=== PATIENT | female | born 1960 | race Asian ===

== ENCOUNTER 2016-07-29 07:48 | Outpatient (CLI) | payer OTHER | END 2016-07-29 07:49 | disposition home or self-care (01) | DX: R20.9 Unspecified disturbances of skin sensation (principal); G93.9 Disorder of brain, unspecified ==

== ENCOUNTER 2016-09-25 10:53 | Day surgery (SDC) | payer OTHER ==
[~2016-09-25 10:53] MED LIST: ceFAZolin 2 GM/50 ML 50 ML IV ONE
[2016-09-25] MEDS ORDERED: LACTATED RINGERS 1,000 ML IV ONE (11:01)
[2016-09-25] MEDS ORDERED: BUPIVACAINE 0.25% PF 30 ML VIAL SUBQ ONE ×2 (12:42→13:02)
[2016-09-25] MEDS ORDERED: ACETAMINOPHEN 1,000 MG/100 ML VIAL IV ONE (12:44)
[2016-09-25] MEDS ORDERED: ONDANSETRON 4 MG/2 ML VIAL IVP ONE (12:44)
[2016-09-25] MEDS ORDERED: DEXAMETHASONE 4 MG/ML VIAL IVP ONE (12:44)
[2016-09-25] MEDS ORDERED: KETOROLAC 30 MG/ML VIAL IVP ONE (12:44)
[2016-09-25] MEDS ORDERED: MIDAZOLAM 2 MG/2 ML VIAL IVP ONE (12:44)
[2016-09-25] MEDS ORDERED: PROPOFOL 200 MG/20 ML VIAL IVP ONE (12:44)
[2016-09-25] MEDS ORDERED: LIDOCAINE-MPF 2% 5 ML VIAL IM ONE (12:44)
[2016-09-25 14:36] VITALS: BP 120/56
--- NOTE | 2016-10-24 17:53 | OPERATIVE REPORT ---
DATE OF SURGERY: 09/25/2016 00:00:00 PREOPERATIVE DIAGNOSIS: 1. Right carpal tunnel syndrome. 2. Right thumb ganglion cyst. POSTOPERATIVE DIAGNOSIS: 1. Right carpal tunnel syndrome. 2. Right thumb ganglion cyst. NAME OF PROCEDURE: 1. Right carpal tunnel release. 2. Excision of right thumb tendon sheath ganglion. SURGEON: Dave Skinner MD ASSISTANTS: None. ANESTHESIA: General endotracheal plus local. FINDINGS: The same. COMPLICATIONS: None. ESTIMATED BLOOD LOSS: None. TOURNIQUET: Esmarch bandage to the right forearm x18 minutes. SPECIMEN REMOVED AND CULTURES: Ganglion cyst from the right thumb flexor tendon sheath. DISPOSITION: PACU then home. CONDITION AT END OF PROCEDURE: Stable. INDICATIONS: This is a 55-year-old female with a long-standing history of bilateral dysesthesias in a median nerve distribution to both hands, right greater than left. She has also been bothered by what appeared to be a triggered thumb, however, on palpation it appeare d to be firmly adherent to the flexor tendon sheath and was not actually triggering significantly. We discussed options for the patient and she elected to undergo a right carpal tunnel release and exc ision of a right thumb ganglion cyst. PROCEDURE IN DETAIL: After consent identification, the patient was brought to the operating room and placed in the supine position upon the operating liter. After induction of a general endotracheal ane sthesia and appropriate monitoring, the right upper extremity was outstretched on a Horan stand and pr epped and draped free. After an appropriate time-out was conducted, we exsanguinated the extremity wi th an Esmarch bandage to the elbow. The Esmarch was rolled back at the forearm and hand to expose the wrist and hand. With the forearm in a supinated position, we mapped out a standard carpal tunnel inc ision from the wrist flexor crease parallel and just lateral to the mid-palmar crease for a distance of 2.5 cm. The incision was carried down through the skin and subcutaneous fat down to the palmar fas heather. The palmar fascia was divided longitudinally with a 15 blade scalpel. We then identified the tra nsverse carpal retinaculum with a Heiss retractor and Ragnell retractors in place to retract the palm ar fat. We used a sweeping motion with a 15 blade scalpel to make a rent in the mid-portion of the fl exor retinaculum. A freer elevator was then inserted deep to the retinaculum to protect the median ne rve and we used the 15 blade scalpel to dissect over the freer elevator in a distal and then proximal direction. We used axotomy scissors to complete our dissection proximally and distally to release th e flexor retinaculum. Digital exploration revealed an adequate release. We then abducted the thumb an d mapped out a transverse incision directly over the mass of the 1 cm nodule on the flexor tendon she ath over the proximal phalanx of the thumb. Skin and subcutaneous tissue was divided. This exposed th e ganglion cyst which we carefully dissected free and amputated deep along the tendon sheath. The sravanthi glion cyst was removed from the wound and sent for specimen. We irrigated the wound and closed with a running interlocked 4-0 nylon suture. We then closed the carpal tunnel release with a running interl ocked 4-0 nylon suture as well after irrigating the wound. Both wounds were injected with a total of 10 mL of 0.5% without epinephrine for local anesthetic. A bulky hand dressing was then applied to the right upper extremity and overwrapped with an Mack turner ge. After completion of the procedure, the Esmarch bandage was released. The fingers were observed to pink up nicely. The patient was then extubated and transferred to the recovery room in good conditio n having tolerated the procedure well. 16:9:00 JOB #: [id number] EXT JOB #:[id number]
== END 2016-09-25 10:54 | disposition home or self-care (01) ==
LOC: SDS 10:53
PROVIDERS: ATTEND Orthopaedic Surgery
PROC: 01N50ZZ Release Median Nerve, Open Approach (ICD-10-PCS; principal; 2016-09-25 12:00)
PROC: 0LB70ZZ Excision of Right Hand Tendon, Open Approach (ICD-10-PCS; 2016-09-25 12:00)
DX: G56.01 Carpal tunnel syndrome, right upper limb (principal); M67.441 Ganglion, right hand; Z79.82 Long term (current) use of aspirin; Z90.49 Acquired absence of other specified parts of digestive tract; E78.5 Hyperlipidemia, unspecified
CPT/HCPCS: 26160; 64721; 88304; J0131; J0690; J7120

== ENCOUNTER 2016-10-02 08:00 | Outpatient (CLI) | payer OTHER | END 2016-10-02 08:01 | disposition home or self-care (01) | LOC: LAB.R 08:00 | PROVIDERS: ATTEND Physician Assistant Medical | DX: N39.0 Urinary tract infection, site not specified (principal) | CPT/HCPCS: 87086 ==

== ENCOUNTER 2018-11-11 10:06 | Emergency (ER) | payer OTHER ==
--- NOTE | 2018-11-11 10:47 | ED Physician Documentation ---
PD HPI FOCAL NEURO - Stated complaint Stated Complaint: STROKE SYMPTOMS - Chief complaint Chief Complaint: Neuro - History obtained from History obtained from: Patient - History of Present Illness Timing - onset: How many days ago (several) Timing - duration: Days (several) Timing - details: Gradual onset, Waxing and waning Severity of deficit: Mild (feeling of numbness left arm/fingers with left neck and shoulder pain on ROM. Also with some numbness feeling bottom of left foot and left side of face without weakness in any those areas.) Weakness: No: Face, Arm, Leg Numbness: Face, Arm, Foot, Left. No: Leg Associated symptoms: Neck pain (left side laterally and left shoulder posterior pain. No rash nor sores.). No: Nausea / vomiting, Syncope, Fall, Head injury Baseline status: positive: A&OX3, ambulatory, indep Similar symptoms before: Has not had sx before Recently seen: Not recently seen Review of Systems Constitutional: denies: Fever, Chills, Myalgias Nose: denies: Rhinorrhea / runny nose, Congestion Throat: denies: Sore throat Respiratory: denies: Cough GI: denies: Nausea, Vomiting, Diarrhea Neurologic: reports: Numbness, Headache. 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 - Present Medications Home Medications: Ambulatory Orders Medication Instructions Recorded Confirmed Simvastatin 10 mg PO DAILY 04/20/14 09/25/16 Ibuprofen 600 mg PO TID #20 tablet 01/03/15 09/25/16 Aspirin Chewable [[place] 81 mg PO PRN PRN 09/12/16 09/25/16 Aspirin] Hydrocodone/Acetaminophen [[place] 1 each PO Q6H PRN #20 tablet 11/11/18 5-325 Tablet] Methocarbamol [Robaxin] 500 mg PO Q6H PRN #30 tablet 11/11/18 Naproxen 375 mg PO BID #20 tablet 11/11/18 - Allergies Allergies/Adverse Reactions: Allergies Allergy/AdvReac Type Severity Reaction Status Date / Time aspirin Allergy Hives Verified 11/11/18 10:13 - Social History Does the pt smoke?: No Smoking Status: Never smoker Does the pt drink ETOH?: No Does the pt have substance abuse?: No - Immunizations Immunizations are current?: Yes PD ED PE NORMAL - Vitals Vital signs reviewed: Yes - General General: Alert and oriented X 3, No acute distress, Well developed/nourished - HEENT HEENT: PERRL, EOMI, Moist mucous membranes, Pharynx benign - Neck Neck: Supple, no meningeal sign, No adenopathy, No JVD, No bruit, Other (tender left lateal muscles and posterior shoulder soft tissue. No obvious deformity. No rash nor sores. 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 ), Normal speech, Other Eye Opening: Spontaneous Motor: Obeys Commands Verbal: Oriented GCS Score: 15 NIHSS - Level of Consciousness Level of consciousness: (0) Alert, Keenly responsive LOC Questions: (0) Answers both Q's correct LOC Commands: (0) Performs both correctly - Gaze Best Gaze: (0) Normal - Visual Visual: (0) No loss - Facial Palsy Facial Palsy: (0) Normal, symmetrical movement - Motor Arms (both separate) Motor Arm (right): (0) No drift Motor Arm (left): (0) No drift - Motor Legs (both separate) Motor Leg (right): (0) No drift Motor Leg (left): (0) No drift - Limb Ataxia Limb Ataxia: (0) Absent - Sensory Sensory: (0) Normal - Best Language Best Language: (0) No aphasia - Dysarthria Dysarthria: (0) Normal - Extinction and Inattention (formally neg Extinction and inattention: (0) No abnormality - Total Score/Results Total Score/Result: 0 Results - Vitals Vitals: Oxygen O2 Source Room air - Labs Labs: Laboratory Tests 11/11/18 11/11/18 11/11/18 11:28 11:28 11:28 WBC 6.9 RBC 4.38 Hgb 13.3 Hct 39.5 MCV 90.2 MCH 30.4 MCHC 33.7 RDW 12.6 Plt Count 272 MPV 9.4 Neut # (Auto) 2.9 Lymph # (Auto) 3.1 Rabun # (Auto) 0.5 Eos # (Auto) 0.3 Baso # (Auto) 0.1 Absolute Nucleated RBC 0.00 Nucleated RBC % 0.0 ESR 18 Sodium 140 Potassium 4.1 Chloride 104 Carbon Dioxide 27 Anion Gap 9.0 BUN 14 Creatinine 0.6 Estimated GFR (MDRD) 102 Glucose 98 Calcium 9.3 Magnesium 2.3 Total Bilirubin 1.7 H AST 17 ALT 23 Alkaline Phosphatase 66 Total Protein 8.1 Albumin 4.2 Globulin 3.9 Albumin/Globulin Ratio 1.1 Lipase 34 - Rads (name of study) head and neck angios Radiology: Prelim report reviewed (normal), See rad report PD MEDICAL DECISION MAKING - ED course Complexity details: reviewed results (no neck vessel dissection nor occlusions. Brain normal tissue and flow. ), considered differential (has neck pain and some shoulder pain. Numbness of left arm, would seem like radicular symptoms. But also with some numbness hear distal plantar aspect of foot and left side of face. No weakness in those areas. 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 Heat and gentle stretching for the neck. You could do chiropractic or massage as well. Naproxen anti-inflammatory twice daily with food. Robaxin muscle relaxant for stiffness and spasm. Add Tylenol 4 times a day or hydrocodone if needed for worse pain. Follow-up with your primary care if not improved well over the next several days. There are no signs of more significant process based on your CT scans and blood tests. Discharge Date/Time: 11/11/18 14:21
[2018-11-11] MEDS ORDERED: SODIUM CHLORIDE 0.9% 1,000 ML IV ONE (11:19)
[2018-11-11] MEDS ORDERED: KETOROLAC 15 MG/ML VIAL IVP STA (11:21)
[2018-11-11 11:34] LABS: BASOPHILS # (AUTO) 0.1 10^3/uL (0.0-0.1); BASOPHILS % (AUTO) 0.7 %; EOSINOPHILS # (AUTO) 0.3 10^3/uL (0.0-0.7); EOSINOPHILS % (AUTO) 4.6 %; HGB - HEMOGLOBIN 13.3 g/dL (12.0-16.0); LYMPHOCYTES # (AUTO) 3.1 10^3/uL (1.5-3.5); LYMPHOCYTES % (AUTO) 45.1 %; MEAN CORPUSCULAR HEMOGLOBIN 30.4 pg (27.0-31.0); MEAN CORPUSCULAR HGB CONC 33.7 g/dL (32.0-36.0); MEAN CORPUSCULAR VOLUME 90.2 fL (81.0-99.0); MEAN PLATELET VOLUME 9.4 fL (7.9-10.8); MONOCYTES # (AUTO) 0.5 10^3/uL (0.0-1.0); MONOCYTES % (AUTO) 7.7 %; NEUTROPHILS # (AUTO) 2.9 10^3/uL (1.5-6.6); NEUTROPHILS % (AUTO) 41.8 %; PLT - PLATELET COUNT 272 10^3/uL (130-450); RED BLOOD COUNT 4.38 10^6/uL (4.20-5.40); RED CELL DISTRIBUTION WIDTH 12.6 % (12.0-15.0); WHITE BLOOD COUNT 6.9 x10^3/uL (4.8-10.8)
[2018-11-11] MEDS ORDERED: IOVERSOL 320 100 ML VIAL IVP ONE ×2 (11:43→12:45)
[2018-11-11 11:47] LABS: ALBUMIN 4.2 g/dL (3.2-5.5); ALBUMIN/GLOBULIN RATIO 1.1 (1.0-2.2); BILIRUBIN,TOTAL 1.7 mg/dL (0.2-1.0); CALCIUM 9.3 mg/dL (8.5-10.3); CREATININE 0.6 mg/dL (0.4-1.0); MAGNESIUM 2.3 mg/dL (1.7-2.8); TOTAL PROTEIN 8.1 g/dL (6.7-8.2)
--- NOTE | 2018-11-11 12:49 | CT Report ---
Reason: left face and arm numbness; left neck pain Procedure Date: 11/11/2018 Accession Number: [id number] / [id number] Procedure: CT - ANGIO HEAD W/WO CPT Code: FULL RESULT: EXAM: CT ANGIOGRAM HEAD. CT SCAN OF THE HEAD WITHOUT AND WITH CONTRAST. EXAM DATE: 11/11/2018 12:21 PM CLINICAL HISTORY: 58-year-old woman with left face and arm numbness and left neck pain. COMPARISON: None. TECHNIQUE: - CT Scan Head: Using a multidetector scanner, axial images were acquired from the foramen magnum to the skull vertex prior to and following contrast administration. - CT Angiogram: Using a multidetector scanner, high-resolution axial images were acquired from the skull base through vertex following rapid infusion of intravenous contrast. Reformats: Multiplanar MIP reformats were reconstructed. Nascet criteria used for stenosis measurement. IV Contrast: OPTI 320 80ML. In accordance with CT protocol optimization, one or more of the following dose reduction techniques were utilized for this exam: automated exposure control, adjustment of mA and/or KV based on patient size, or use of iterative reconstructive technique. FINDINGS: NONCONTRAST HEAD: Parenchyma: No evidence of acute infarct, hemorrhage, or mass lesion. Parenchyma demonstrates normal attenuation characteristics. Ventricles and Extra-axial Spaces: Ventricles are symmetric and normal in size for age. No extra-axial hemorrhage or fluid collection. Orbits: Unremarkable. Sinuses: Paranasal sinuses and mastoid air cells are clear. Extracranial Soft Tissues and Bones: Soft tissues are unremarkable. No fractures. CTA HEAD: RIGHT: - Visualized Internal Carotid: Patent without significant stenosis or aneurysm. There is minimal atherosclerotic plaque along the siphon. - Anterior Cerebral: Patent without significant stenosis or aneurysm. - Middle Cerebral: Patent without significant stenosis or aneurysm. - Posterior Cerebral: Patent without significant stenosis or aneurysm. - Posterior Communicating: Patent. No aneurysm. - Visualized Vertebral: Patent without significant stenosis or dissection. The PICA is visualized and is patent. LEFT: - Visualized Internal Carotid: Patent without significant stenosis or aneurysm. There is mild atherosclerotic plaque along the siphon. - Anterior Cerebral: Patent without significant stenosis. 2 mm, laterally directed outpouching is present near the expected A1-A2 junction consistent with aneurysm. - Middle Cerebral: Patent without significant stenosis or aneurysm. - Posterior Cerebral: Patent without significant stenosis or aneurysm. - Posterior Communicating: Patent. No aneurysm. - Visualized Vertebral: Patent without significant stenosis or dissection. The PICA is visualized and is patent. CENTRAL: - Anterior Communicating: Not well seen. - Basilar: Patent without significant stenosis, dissection, or aneurysm. POSTCONTRAST HEAD: No abnormal enhancement. IMPRESSION: HEAD: 1. No acute intracranial abnormality. Specifically, no evidence of acute infarct, hemorrhage, or mass lesion. CTA HEAD: 1. No large vessel occlusion or significant vascular stenosis. 2. 2 mm outpouching along the left LUIS most consistent with small aneurysm. RADIA
--- NOTE | 2018-11-11 12:50 | CT Report ---
Reason: left face/arm numbness; left neck pain Procedure Date: 11/11/2018 Accession Number: [id number] / [id number] Procedure: CT - ANGIO NECK W CPT Code: FULL RESULT: EXAM: CT ANGIOGRAM NECK EXAM DATE: 11/11/2018 12:21 PM. CLINICAL HISTORY: 58-year-old woman with left face and arm numbness and left neck pain. COMPARISON: None. TECHNIQUE: Routine axial helical imaging was performed from the skull base through the aortic arch. Reconstructions: Routine multiplanar 3D MIP reconstructions. IV Contrast: OPTI 320 80ML. Evaluation of arterial stenosis is based on a NASCET method of measurement. In accordance with CT protocol optimization, one or more of the following dose reduction techniques were utilized for this exam: automated exposure control, adjustment of mA and/or KV based on patient size, or use of iterative reconstructive technique. FINDINGS: RIGHT: - Common and Internal Carotid: Patent without signficant stenosis. No evidence of atherosclerotic plaque at the bifurcation. Stenosis by NASCET criteria: 0%. No evidence of dissection. - External Carotid: Unremarkable. - Vertebral: Patent without significant stenosis. No evidence of dissection. LEFT: - Common and Internal Carotid: Patent without signficant stenosis. No evidence of atherosclerotic plaque at the bifurcation. Stenosis by NASCET criteria: 0%. No evidence of dissection. - External Carotid: Unremarkable. - Vertebral: Patent without significant stenosis. No evidence of dissection. SOFT TISSUES AND BONES: The thyroid is moderately enlarged and has a heterogeneous appearance and ill-defined nodule in the left lobe measuring up to 1.6 cm in diameter, suspicious for multinodular goiter but incompletely evaluated on this exam. Visualized soft tissues are otherwise unremarkable. Lung apices are clear. No evidence of acute fracture or malalignment of the cervical spine. Status post ACDF of C5-C7. There is evidence of solid bony fusion at C5-C6, but lucency persists across the C6-C7 disk space concerning for pseudoarthrosis. IMPRESSION: 1. Carotid and vertebral arteries are patent without significant stenosis, atherosclerotic disease, or dissection. 2. Status post ACDF of C5-C7. There is solid bony fusion at C5-C6, but lucency persists across the C6-C7 space concerning for pseudoarthrosis. RADIA
[2018-11-11] MEDS ORDERED: HYDROmorphone 1 MG/ML CARPUJECT IVP STA (13:37)
[2018-11-11] MEDS ORDERED: DEXAMETHASONE 10 MG/ML VIAL IVP STA (13:37)
[2018-11-11 14:08] VITALS: BP 133/82
== END 2018-11-11 14:21 | disposition home or self-care (01) ==
LOC: ED 10:06
DX: M54.2 Cervicalgia (principal); R20.2 Paresthesia of skin; R20.0 Anesthesia of skin; M25.512 Pain in left shoulder; Z79.82 Long term (current) use of aspirin
CPT/HCPCS: 36415; 70496; 70498; 80053; 83690; 83735; 85025; 85651; 96361; 96365; 99285; 99291; J1170; Q9967

== ENCOUNTER 2023-08-17 09:55 | Outpatient (CLI) | payer OTHER ==
--- NOTE | 2023-08-17 20:13 | XRAY Report ---
PROCEDURE: Lumbar Spine 2-3V INDICATIONS: LUMBAR PAIN TECHNIQUE: 2 views of the lumbar spine were acquired. COMPARISON: None. FINDINGS: Surgical change: None. Bones: 5 [id number] vertebrae are present. There is normal bony alignment. No vertebral body co mpression fractures. No suspicious bony lesions. Multilevel disc space narrowing and degenerative en dplate changes are seen. There is mild to moderate facet hypertrophy. Soft tissues: Overlying bowel gas pattern is normal. No suspicious soft tissue calcifications. Righ t upper quadrant cholecystectomy clips are present. Adnexal clips are seen. IMPRESSION: Moderate multilevel spondylosis. Reviewed by: Sanjay Machuca MD on 08/17/2023 8:12 PM PDT Approved by: Sanjay Machuca MD on 08/17/2023 8:12 PM PDT Station ID: [id number]
== END 2023-08-17 09:56 | disposition home or self-care (01) ==
LOC: DI 09:55
PROVIDERS: ATTEND Internal Medicine Cardiovascular Disease
DX: M47.816 Spondylosis without myelopathy or radiculopathy, lumbar region (principal)